=== PATIENT | female | born 1950 | race Caucasian/White ===

== ENCOUNTER 2016-04-29 05:01 | Inpatient (IN) | payer OTHER ==
[~2016-04-29] VITALS: Ht 160 cm; Wt 56.7 kg
[~2016-04-29 05:01] MED LIST: AMBIEN10 M1 PO; CLIMARA PRO PA1 EACH ACW; SYNTHROID100 MCG PO; WELLBUTRIN XL300 M2 PO
--- NOTE | 2016-04-29 14:25 | Admission Core Measures ---
Admission Meds I reviewed the following Meds: Current Medications Sig/Timmy Start time Last Medication Dose Stop Time Status Admin Acetaminophen 975 MG ONCE 04/29 NR (Tylenol) 04/29 2358 Cefazolin Sodium 2,000 MG ONCE 04/29 NR (Kefzol-Ancef Inj) 04/29 2358 Oxycodone HCl 10 MG ONCE 04/29 0000 NR (Roxicodone) 04/29 2358 Acute Coronary Syndrome Inclusion Criteria ACS Diagnosis No Inpatient Core Measures LDL Reminder: If No, please order W/I first 24hr of stay Congestive Heart Failure Inclusion Criteria CHF Diagnosis No Cerebrovascular accident Inclusion Criteria CVA/TIA Diagnosis No Inpatient Core Measures Bedside Swallow Eval Reminder: If BSE failed, place ST order Antithrombotic Reminder: Order Antithrombotic Medication by end of day 2 Antithrombotic Reminder: Document Reason Antithrombotic Not ordered by end of day 2 AFIB/Flutter Reminder: If Present, add to problem list AFIB/Flutter Reminder: Order Anticoag Medication for pts with AFIB/Flutter Atherosclerosis Reminder: If Present, add to problem list LDL Reminder: If No, please order W/I first 24hr of stay PT Order Reminder: If No, please order Venous thromboembolism Inpatient Core Measures VTE Risk Factors: Age > 40, Surgery VTE Prophylaxis Ordered Inpt Mech & Pharm No Mech VTE prophylaxis d/t No contraindications No VTE Pharm Prophylaxis d/t No contraindications Inclusion Criteria - Per Current guidelines, there needs to be overlap - treatment for the first 5 days of Warfarin therapy. - Parenteral Anticoagulation (IV or SC) needs to be - given along with Warfarin therapy. VTE Diagnosis No VTE Type NONE VTE Confirmed by (Test) NONE Problem List As ranked by this Provider includes Assessment & Plan 1. Status post total hip replacement, right HOME MEDS Home Med List Bupropion HCl (Wellbutrin XL) 300 MG TAB.ER.24H 1 TAB PO DAILY DEPRESSION ( Reported) Estradiol/Levonorgestrel (Climara Pro Patch) 0.045 MG-0.015 MG/24 HOUR PATCH.TDWK 1 PATCH ACW WEEKLY MENOPAUSE (Reported) Levothyroxine Sodium (Synthroid) 100 MCG TABLET 1 TAB PO DAILY HYPOTHYROID ( Reported) Zolpidem Tartrate (Ambien) 10 MG TABLET 1 TAB PO BEDTIME INSOMNIA (Reported)
--- NOTE | 2016-04-29 14:26 | Surg Short-stay <48hrs Dis Sum ---
Visit Information Visit Dates Admission Date: 04/29/16 Discharge Date: 04/30/16 Surgical Short Stay DC Summary Admission Diagnosis: Right hip pain Final Diagnosis: same Procedure(s): 04/29/16 Right total hip arthroplasty Summary/Significant Findings: Patient admitted to floor following procedure below. Patient ambulated with PT upon arrival to the floor. Patient continued to progress well. Upon discharge patient is afebrile, tolerating diet, pain controlled, ambulating well with rolling walker and PT. Condition at Discharge: Good Discharge Disposition: home health services Discharge instructions provided to patient/family: Yes Post discharge follow-up plan: Call office to schedule/confirm appointment.
--- NOTE | 2016-04-29 14:28 | Patient Discharge Instructions ---
Discharge Instructions General Discharge Information You were seen/treated for: right hip pain You had these procedures: 04/29/16 Right total hip arthroplasty Watch for these problems: Redness, swelling, fever, signs of infection. Uncontrolled pain, Excessive bleeding. Decreased range of motion or unable to bear weight. Chest pain, shortness of breath. Call Surgeon to remove: Stitches Do not soak the wound: Yes No bath, but you may shower: Yes Other wound care: Daily dry dressing changes starting postoperative day #2 Diet Continue normal diet: Yes Activity Activity Self Limited: Yes Activity Limited to: Weight bear as tolerated Additional ACTIVITY Info: Daily physical therapy Acute Coronary Syndrome Inclusion Criteria At DC or during hospital stay patient has or had the following: ACS DIAGNOSIS No Discharge Core Measures Meds if any: Prescribed or Continued at Discharge Meds if any: NOT Prescribed or Continued at Discharge Congestive Heart Failure Inclusion Criteria At DC or during hospital stay patient has or had the following: CHF DIAGNOSIS No Discharge Core Measures Meds if any: Prescribed or Continued at Discharge Meds if any: NOT Prescribed or Continued at Discharge Cerebrovascular accident Inclusion Criteria At DC or during hospital stay patient has or had the following: CVA/TIA Diagnosis No Discharge Core Measures Meds if any: Prescribed or Continued at Discharge Meds if any: NOT Prescribed or Continued at Discharge Venous thromboembolism Inclusion Criteria VTE Diagnosis No VTE Type NONE VTE Confirmed by (Test) NONE Discharge Core Measures - Per Current guidelines, there needs to be overlap - treatment for the first 5 days of Warfarin therapy. - If discharged on Warfarin prior to 5 days of - overlap therapy, the patient will need to be - assessed for post discharge needs including - *Post discharge parental anticoagulation - *Warfarin and/or parental anticoagulation education - *Follow up date to check INR post discharge At least 5 days overlap therapy as Inpatient No Meds if any: Prescribed or Continued at Discharge Note: Overlap Therapy is Warfarin and Anticoagulant Meds if any: NOT Prescribed or Continued at Discharge
[2016-04-29] MEDS ORDERED: MORPHINE SULFAT15 M3 PO (14:34)
[2016-04-29] MEDS ORDERED: MIRALAX17 G1 PO (14:34)
[2016-04-29] MEDS ORDERED: COLACE100 M1 PO (14:34)
[2016-04-29] MEDS ORDERED: DILAUDID2 M1 PO (14:34)
[2016-04-29] MEDS ORDERED: ASPIRIN325 M2 PO ×2 (14:34→14:41)
--- NOTE | 2016-04-29 15:53 | Operative Report ---
Operative/Inv Procedure Report Surgery Date: 04/29/16 Name of Procedure: Right total hip replacement Pre-Operative Diagnosis: Primary right hip DJD Post-Operative Diagnosis: Same Estimated Blood Loss: 250 Surgeon/Bobbin Handler: ABELARDO KENNEDY,DIONTE Barreto Anesthesia: block Operative/Procedure Note Note: Description of Procedure: The patient was taken to the operating room and positively identified. After induction of spinal anesthesia and administration of appropriate pre-operative antibiotics, the patient was positioned supine on the operating room table and all bony prominences were well padded. After performing a surgical timeout, the right lower extremity was prepped and draped in the usual sterile fashion. A direct anterior approach was made to the right hip. The incision was carried sharply through superficial soft tissues to the level of the fascia. Meticulous hemostasis was maintained with Bovie electocautery. The fascia over the tensor fascia anay muscle was opened sharply and the interval between the TFL and the sartorius was entered bluntly taking care to stay lateral to the lateral femoral cutaneous nerve. Retractors were placed around the femoral neck and the pericapsular fat was identified. The ascending branches of the lateral femoral circumflex vessels were identified and carefully coagulated. The pericapsular fat and anterior capsule were then resected. A napkin ring osteotomy was performed and the femoral head was removed without difficulty. Attention was then turned to the acetabulum. After appropriate placement of retractors, the acetabulum was exposed. Soft tissue was cleaned from the acetabular margin and notch. Overhanging osteophytes were removed and the teardrop was exposed. The acetabulum was then sequentially reamed to accept a 56 mm Frankie Tritanium hemispherical solid back shell. This was impacted into place in the appropriate position and fitted with a 36 mm Trident X3 zero degree polyethylene insert. Attention was then turned to the femur. After performing the appropriate ligament releases, the proximal femur was exposed. It was then sequentially broached to accept a size 4 [place]na accolade 2 stem. This was trialed for leg length and stability. The trial component was removed and the final component was impacted into place. The trunnion was carefully cleaned and fit with a 36 mm, -5 Biolox delta ceramic femoral head. The hip was reduced and put through a full range of motion and found to be stable. The articular space was then irrigated with sterile saline. The periarticular soft tissues were infilitrated with Marcaine. The fascial layer was closed with interrupted #1 vicryl suture and the skin was re-approximated with interrupted 2 -0 vicryl. The skin was closed with a running 3-0 V-Lock suture. Steri-strips and a sterile dressing were applied. The patient was awakened and taken to the recovery room in satisfactory condition.
--- NOTE | 2016-04-29 18:49 | RADIOLOGY REPORT ---
EXAMINATION: XR HIP, RIGHT CLINICAL INFORMATION: Status post right hip replacement, Minericai technique. COMPARISON: None. TECHNIQUE: AP and crosstable lateral views of the right hip. FINDINGS: AP and crosstable lateral views of the right hip demonstrates postsurgical changes related to total right hip arthroplasty, with scattered foci of subcutaneous emphysema visualized along the anterolateral aspect of the proximal right thigh. No immediate mechanical hardware complications. No periprosthetic fractures. IMPRESSION: Expected postoperative changes following total right hip arthroplasty. No immediate mechanical hardware complications.
--- NOTE | 2016-04-29 20:00 | NUR ---
LATE ENTRY: 1800 PT ARRIVED ON FLOOR FROM PACU. PT A&OX3, RA, VSS, AFEBRILE, PT DENIES PAIN AT THIS TIME. NO DISTRESS. PT HAS DRSG TO R HIP, C,D,I. NO SKIN BREAKDOWN. PT ORIENTED TO FLOOR/ROOM. WILL CONTINUE TO MONITOR.
[2016-04-29 20:01] VITALS: BP 90/60
[2016-04-29 22:13] VITALS: BP 96/60
--- NOTE | 2016-04-29 22:15 | PN- Orthopedic ---
Subjective Subjective: poc s/p right marcin comfortable denies cp, sob, no n+v Objective Vital Signs and I&Os Vital Signs Date Time Temp Pulse Resp B/P Pulse O2 O2 Flow FiO2 Ox Delivery Rate 04/29 2000 97.9 87 20 90/60 98 Room Air Physical Exam: cv: rrr lungs: clear abd: +bs, soft ext: drsg dry thigh soft distal cms intact Assessment/Plan Assessment/Plan ortho stable plan oob with pt in am asa for dvt prophylaxis home d/c planning Core Measures/Miscellaneous Venous Thromboembolism VTE Risk Factors: Age > 40, Surgery VTE Contraindications: No Contraindications VTE Prophylaxis Ordered Inpt: Mech & Pharm VTE Diagnosis: No VTE Type: NONE VTE Confirmed by (Test): NONE Beta Luz Marina Is Beta Luz Marina a Home Med? No Antibiotics Is Patient on Antibiotics? Yes If Yes: prophylaxis
[2016-04-30 00:05] VITALS: BP 110/64
[2016-04-30 04:02] VITALS: BP 110/56
[2016-04-30 08:00] VITALS: BP 108/62
--- NOTE | 2016-04-30 08:46 | PN- Orthopedic ---
Subjective Subjective: NAEO. Patient without new c/o. Pain controlled at this time, no numbness or tingling in LLE. Tolerating diet without n/v. +flatus, no BM. Has not been OOB with PT. Denies CP/SOB. Objective Vital Signs and I&Os Vital Signs Date Time Temp Pulse Resp B/P Pulse O2 O2 Flow FiO2 Ox Delivery Rate 04/30 0402 98.3 80 18 110/56 96 Room Air 04/30 0005 98.0 88 20 110/64 95 Room Air 04/29 2213 97.5 76 20 96/60 97 Room Air 04/29 2000 97.9 87 20 90/60 98 Room Air Intake & Output 04/30 1600 04/30 0000 04/29 1600 04/29 0000 Intake Total 800 705 Output Total Balance 800 705 Intake, IV 600 225 Intake, Oral 200 480 Patient 125 lb Weight Physical Exam: General: NAD, comfortable, A&Ox3 Chest: NRD, breathing comfortably on RA. RRR. Abdomen: soft, nontender, nondistended. Ext: Left hip dressing c/d/i. Left thigh softly swollen. No calve swelling/TTP , neurovascularly intact bilateral lower extremities. Current Medications: Current Medications Sig/Timmy Start time Last Medication Dose Route Stop Time Status Admin Acetaminophen 650 MG .STK-MED ONE 04/30 0033 DC PO 04/30 0034 Acetaminophen 650 MG Q4P PRN 04/29 1800 AC 04/30 PO 0038 Acetaminophen 975 MG ONCE 04/29 0000 DC PO 04/29 235 Aspirin 325 MG BID 04/29 2200 AC 04/29 PO 2216 Bupropion HCl 300 MG DAILY 04/30 1000 AC PO Cefazolin Sodium 2 GM Q8H 04/29 2100 DC 04/30 N/A 1 UNIT IV 04/30 0529 0400 Cefazolin Sodium 2,000 MG ONCE 04/29 0000 DC IV 04/29 235 Docusate Sodium 100 MG DAILY 04/30 1000 AC PO Hydromorphone HCl 2 MG Q4P PRN 04/29 1800 AC 04/30 PO 0813 Hydromorphone HCl 4 MG Q4P PRN 04/29 1800 AC PO Hydromorphone HCl 1 MG Q3P PRN 04/29 1800 AC IV Ketorolac 15 MG Q8P PRN 04/29 1800 AC 04/30 Tromethamine IV 05/02 1753 0344 Levothyroxine Sodium 0.1 MG DAILY AC 04/30 0700 AC 04/30 PO 0403 Morphine Sulfate 10 MG .STK-MED ONE 04/29 1311 DC IV 04/29 1312 Ondansetron HCl 4 MG Q6P PRN 04/29 1800 AC IV Oxycodone HCl 10 MG .STK-MED ONE 04/29 1234 DC PO 04/29 1235 Oxycodone HCl 10 MG ONCE 04/29 0000 DC PO 04/29 2359 Polyethylene Glycol 17 GM DAILY 04/30 1000 AC PO Sodium Chloride 1,000 ML .[id number] 04/29 1800 AC 04/30 IV 0812 Zolpidem Tartrate 10 MG AT BEDTIME 04/29 2200 AC 04/29 PO 2217 Assessment/Plan Assessment/Plan 65yo F POD#1 s/p left total hip arthroplasty. AVSS, patient stable. - pain control - PRN zofran - bowel regimen - I/O's - f/u a.m. labs - OOB and ambulate with PT, WBAT - ASA 325mg PO BID - ALPS/TEDS - DC if cleared by PT - Will d/w attending Core Measures/Miscellaneous Venous Thromboembolism VTE Risk Factors: Age > 40, Surgery VTE Contraindications: No Contraindications VTE Prophylaxis Ordered Inpt: Mech & Pharm VTE Diagnosis: No VTE Type: NONE VTE Confirmed by (Test): NONE Beta Luz Marina Is Beta Luz Marina a Home Med? No Antibiotics Is Patient on Antibiotics? No
[2016-04-30 09:17] LABS: ABSOLUTE BASOPHIL COUNT 0 /CUMM (0.0-0.2); ABSOLUTE EOSINOPHIL COUNT 0 /CUMM (0.0-0.7); ABSOLUTE LYMPH COUNT 1.8 /CUMM (1.2-3.4); BASOPHIL % 0.3 % (0.0-2.0); EOSINOPHIL % 0.3 % (0-5); GRANULOCYTE % 73.4 % (42.2-75.2); HEMATOCRIT 30.8 % (37-47); MEAN CORPUSCULAR HGB 29.1 PG (27.0-31.0); MEAN CORPUSCULAR VOLUME 85.6 FL (81.0-99.0); MEAN PLATELET VOLUME 7.3 FL (7.4-10.4); PLATELET COUNT 222 /CUMM (130-400); RBC DISTRIBUTION WIDTH 14.8 % (11.5-14.5); RED BLOOD CELL CT 3.59 /CUMM (4.20-5.40); WHITE BLOOD CELL COUNT 10.9 /CUMM (4.8-10.8)
== END 2016-04-30 11:43 | disposition home health service (06) | DRG 470 ==
LOC: ENRESERVDT → ENRESERVTM → 2NA 05:01 → SDA 05:01 → ENPENDDIS 05:01 → 2NA 17:51
PROVIDERS: Physician Assistant Surgical; ADMIT Orthopaedic Surgery
PROC: 0SR904A Replacement of Right Hip Joint with Ceramic on Polyethylene Synthetic Substitute, Uncemented, Open Approach (ICD-10-PCS; principal; 2016-04-29)
DX: M16.11 Unilateral primary osteoarthritis, right hip (principal); F32.9 Major depressive disorder, single episode, unspecified; E03.9 Hypothyroidism, unspecified; E78.5 Hyperlipidemia, unspecified; Z87.891 Personal history of nicotine dependence
CPT/HCPCS: 2NAP; 73502-RT; 82436; 88304; 97116-GO; 97161-GP; 97530-GO; J0690; J0735; J2405